=== PATIENT | female | born 1985 | race African-American/Black ===

== ENCOUNTER 2017-08-22 11:46 | Inpatient (IN) | payer OTHER ==
[2017-08-22 12:41] VITALS: BMI 22.6
--- NOTE | 2017-08-22 15:11 | HP ---
COWS - Scale Resting Pulse: 1= [place] 81-100 Sweatin= Chills/Flushing Restless Observation: 1= Difficult to Sit Still Pupil Size: 1= Pupils >than Normal Bone or Joint Aches: 2= Severe Diffuse Aches Runny Nose/ Eye Tearin= Runny Nose/Eyes GI Upset > 30mins: 2= Nausea/Diarrhea Tremor Observation: 1= Tremor [place], Not Seen Yawning Observation: 2= >3x During Session Anxiety or Irritability: 2=Irritable/Anxious Goose Flesh Skin: 0=Smooth Skin COWS Score: 15 Admission ROS S - HPI Chief Complaint: withdrawal sx from opioid Allergies/Adverse Reactions: Allergies Allergy/AdvReac Type Severity Reaction Status Date / Time No Known Allergies Allergy Verified 08/22/17 15:12 History of Present Illness: 31 years old female with long history of opioid nicotine dependence has depression is admitted to detox Exam Limitations: No Limitations - Ebola screening Have you traveled outside of the country in the last 21 days: No Have you had contact with anyone from an Ebola affected area: No Have you been sick,other than usual withdrawal symptoms: No Do you have a fever: No - Review of Systems Constitutional: Loss of Appetite, Changes in sleep, Unintentional Wgt. Loss, Unexplained wgt Loss EENT: reports: Blurred Vision (eye glasses at home), Throat Swelling Cardiac: reports: No Symptoms Reported GI: reports: Nausea, Poor Appetite, Poor Fluid Intake, Abdominal cramping : reports: No Symptoms Reported Musculoskeletal: reports: Back Pain, Joint Pain, Muscle Pain, Neck Pain Integumentary: reports: No Symptoms Reported Neuro: reports: Tremors Endocrine: reports: No Symptoms Reported Hematology: reports: No Symptoms Reported Psychiatric: reports: Judgement Intact, Orientated x3 Other Systems: Reviewed and Negative Patient History - Patient Medical History Hx Anemia: No Hx Asthma: No Hx Chronic Obstructive Pulmonary Disease (COPD): No Hx Cancer: No Hx Cardiac Disorders: No Hx Congestive Heart Failure: No Hx Hypertension: No Hx Hypercholesterolemia: No Hx Pacemaker: No HX Cerebrovascular Accident: No Hx Seizures: No Hx Dementia: No Hx Diabetes: No Hx Gastrointestinal Disorders: No Hx Liver Disease: No Hx Genitourinary Disorders: No Hx Sexually Transmitted Disorders: No Hx Renal Disease (ESRD): No Hx Thyroid Disease: No Hx Human Immunodeficiency Virus (HIV): No Hx Hepatitis C: No Hx Depression: Yes Hx Suicide Attempt: No Hx Bipolar Disorder: No Hx Schizophrenia: No - Patient Surgical History Past Surgical History: No - PPD History Previous Implant?: Yes Documented Results: Negative w/o proof Implanted On Prior [facility] Admission?: No PPD to be Administered?: Yes - Reproductive History Patient is a Female of Child Bearing Age (11 -55 yrs old): Yes Last Menstrual Period: 08/11/17 Patient : No - Smoking Cessation Smoking history: Current every day smoker Have you smoked in the past 12 months: Yes Aproximately how many cigarettes per day: 40 Cigars Per Day: 0 Hx Chewing Tobacco Use: No Initiated information on smoking cessation: Yes 'Breaking Loose' booklet given: 08/22/17 - Substance & Tx. History Hx Alcohol Use: No Hx Substance Use: Yes Substance Use Type: Opiates, Tranquilizers Hx Substance Use Treatment: No (first detox) Family Disease History - Family Disease History Family History: Denies ("they all healthy") Admission Physical Exam S - Vital Signs Vital Signs: Vital Signs - 24 hr 08/22/17 12:35 Temperature 96.4 F L Pulse Rate 84 Respiratory 17 Rate Blood Pressure 146/87 - Physical General Appearance: Yes: Appropriately Dressed, Mild Distress, Thin, Tremorous, Irritable, Sweating, Anxious HEENTM: Yes: Hearing grossly Normal, Normocephalic, Normal Voice Respiratory: Yes: Chest Non-Tender, No Respiratory Distress, No Accessory Muscle Use, Wheezing, Expiration Neck: Yes: Supple, Trachea in good position Breast: Yes: Breasts Symetrical, No Discharge Cardiology: Yes: Regular Rhythm, Regular Rate, S1, S2 Abdominal: Yes: Normal Bowel Sounds, Non Tender, Flat Genitourinary: Yes: Within Normal Limits Back: Yes: Normal Inspection Musculoskeletal: Yes: full range of Motion, Gait Steady, Back pain, Muscle Pain Extremities: Yes: Normal Inspection, Normal Range of Motion, Non-Tender, Tremors Neurological: Yes: Fully Oriented, Alert, Motor Strength 5/5, Normal Response, Depressed Affect Integumentary: Yes: Warm Lymphatic: Yes: Within Normal Limits - Diagnostic (1) Opioid dependence with withdrawal Current Visit: Yes Status: Acute (2) Nicotine dependence Current Visit: Yes Status: Acute Qualifiers: Nicotine product type: cigarettes Substance use status: in withdrawal Qualified Code(s): F17.213 - Nicotine dependence, cigarettes, with withdrawal (3) Weight loss Current Visit: Yes Status: Acute (4) Asthma Current Visit: Yes Status: Chronic Qualifiers: Asthma severity: mild Asthma persistence: persistent Asthma complication type: with status asthmaticus Qualified Code(s): J45.32 - Mild persistent asthma with status asthmaticus (5) Anxiety Current Visit: Yes Status: Suspected Cleared for Admission S - Detox or Rehab [facility] Level of Care: Medically Managed Detox Regimen/Protocol: Methadone S Breath Alcohol Content Breath Alcohol Content: 0 Urine Pregancy Test - Result Urine Test Results: Negative- NO Line Present Urine Drug Screen - Control Is Test Valid: Yes - Results Drug Screen Negative: No Urine Drug Screen Results: OPI-Opiates, BZO-Benzodiazepines
[2017-08-22] MEDS ORDERED: MAGNESIUM CITRATE 300 ML BOTTLE PO PRN (15:15)
[2017-08-22] MEDS ORDERED: P-EPHED 60MG/TRIPROLIDI 2.5MG TABLET PO PRN (15:15)
[2017-08-22] MEDS ORDERED: MAG HYDROX/AL HYDROX/SIMETH 30 ML UNIT-DOSE CUP PO PRN (15:15)
[2017-08-22] MEDS ORDERED: LOPERAMIDE HCL 2 MG CAPSULE PO PRN (15:15)
[2017-08-22] MEDS ORDERED: MAGNESIUM HYDROX 2400MG/30ML ORAL SUSPENSION 30 ML CUP PO PRN (15:15)
[2017-08-22] MEDS ORDERED: MENTHOL/PHENOL 1 EACH UD MM PRN (15:15)
[2017-08-22] MEDS ORDERED: guaiFENesin/D-METHORPHAN HB 10 ML UNIT-DOSE CUPS PO PRN (15:15)
[2017-08-22] MEDS ORDERED: NICOTINE POLACRILEX 2 MG GUM BC PRN (15:15)
[2017-08-22] MEDS ORDERED: ALBUTEROL SO4 18 GM HFA INHALER IH PRN (15:32)
[2017-08-22] MEDS ORDERED: METHADONE HCL 10 MG TABLET (FOR DETOX USE ONLY) PO ONE ×2 (15:55→23:00)
[2017-08-22] MEDS: diazePAM 5 MG TABLET PO PRN ×2 (17:14→22:13)
[2017-08-22] MEDS: NICOTINE 14 MG/24 HOURS TOPICAL PATCH TD SCH (17:15)
[2017-08-22] MEDS: THIAMINE HCL 100 MG TABLET (FP) PO SCH (22:13)
[2017-08-23 06:20] LABS: URINE APPEARANCE CLOUDY; URINE BILIRUBIN NEGATIVE (<2.0 mg/dL); URINE BLOOD NEGATIVE (NEGATIVE); URINE COLOR AMBER; URINE GLUCOSE (UA) NEGATIVE (NEGATIVE); URINE KETONE NEGATIVE (NEGATIVE); URINE NITRITE POSITIVE (NEGATIVE); URINE UROBILINOGEN 4.0 E.U/dl mg/dL (0.2-1.0)
[2017-08-23 06:34] LABS: URINE LEUK ESTERASE 1+ (NEGATIVE); URINE PROTEIN 1+ (NEGATIVE)
[2017-08-23 07:04] LABS: EPI CELLS MANY /HPF (FEW); URINE BACTERIA MODERATE /hpf (NONE SEEN); URINE MUCUS MANY
--- NOTE | 2017-08-23 07:23 | CONSULT ---
[facility] Psychiatric Consult - Data Date of interview: 08/23/17 Admission source: [facility] Identifying data: This is 31 years old female, single mopther pf three, homeless , unemployes, on PA, with long history of opioid,nicotine dependence, seeking for detox reportsng withdrawal symptoms. Substance Abuse History: Urine Drug Screen Results: OPI-Opiates, BZO- Benzodiazepines. Smoking history: Current every day smoker. Have you smoked in the past 12 months: Yes. Aproximately how many cigarettes per day: 40. Cigars Per Day: 0. Hx Chewing Tobacco Use: No. Initiated information on smoking cessation: Yes. 'Breaking Loose' booklet given: 08/22/17. - Substance & Tx. History. Hx Alcohol Use: No. Hx Substance Use: Yes. Substance Use Type : Opiates, Tranquilizers. Hx Substance Use Treatment: No (first detox) Medical History: Weight loss history, Asthma Psychiatric History: Patient reprots anxiety history, reports no medications taking prior to admission Physical/Sexual Abuse/Trauma History: Denies Additional Comment: Urine Drug Screen Results: OPI-Opiates, BZO- Benzodiazepines. Observation. Detox Unit Care Protocol Mental Status Exam - Mental Status Exam Alert and Oriented to: Person Cognitive Function: Fair Patient Appearance: Unkempt Mood: Sad Affect: Flat Patient Behavior: Sedated Speech Pattern: Delayed Voice Loudness: Mildly Soft/Quiet Thought Process: Circumstantial Thought Disorder: Being Controlled Hallucinations: Denies Suicidal Ideation: Denies Homicidal Ideation: Denies Insight/Judgement: Fair Sleep: Difficulty falling asleep Appetite: Weight loss Muscle strength/Tone: Mild Hypotonicity Gait/Station: Shuffling Additional Comments: Observation. Detox Unit Care Protocol Psychiatric Findings - Problem List ([place] 1, 2,3) (1) Drug-induced mood disorder Current Visit: Yes Status: Acute (2) Nicotine dependence Current Visit: Yes Status: Acute Qualifiers: Nicotine product type: cigarettes Substance use status: in withdrawal Qualified Code(s): F17.213 - Nicotine dependence, cigarettes, with withdrawal (3) Opioid dependence with withdrawal Current Visit: Yes Status: Acute (4) Anxiety Current Visit: Yes Status: Suspected - Initial Treatment Plan Initial Treatment Plan: Observation. Detox Unit Care Protocol
[2017-08-23 09:56] LABS: HEMATOCRIT 31.2 % (32.4-45.2); HEMOGLOBIN 9.4 GM/dL (10.7-15.3); MEAN CELL VOLUME 62.8 fl (80-96); RBC 4.97 M/mm3 (3.60-5.2); WHITE BLOOD COUNT 4.2 K/mm3 (4.0-10.0)
[2017-08-23 09:57] LABS: MCHC 30.3 g/dl (32.0-36.0); MEAN PLT VOLUME 9.1 fl (7.5-11.1); PLATELET COUNT 336 K/MM3 (134-434); RDW 24.9 % (11.6-15.6)
[2017-08-23] MEDS ORDERED: METHADONE HCL 10 MG TABLET (FOR DETOX USE ONLY) PO ONE (10:00)
[2017-08-23 10:34] LABS: CHLORIDE 101 mmol/L (98-107); POTASSIUM 4.1 mmol/L (3.5-5.1); SODIUM 134 mmol/L (136-145)
[2017-08-23] MEDS: diazePAM 5 MG TABLET PO PRN ×2 (10:35→22:29)
[2017-08-23] MEDS: NICOTINE 14 MG/24 HOURS TOPICAL PATCH TD SCH (10:35)
[2017-08-23] MEDS: PRENATAL VITAMINS W/ FOLIC ACID TABLET (FP) PO SCH (10:35)
[2017-08-23] MEDS: IBUPROFEN 400 MG TABLET (FP) PO PRN (10:36)
[2017-08-23 10:57] LABS: ALBUMIN 3.8 g/dl (3.4-5.0); ALK PHOS 75 U/L (45-117); ANION GAP 7 (8-16); BILIRUBIN,TOTAL 0.5 mg/dL (0.2-1.0); BLOOD UREA NITROGEN 5 mg/dL (7-18); CALCIUM 9.1 mg/dL (8.5-10.1); CO2 26 mmol/L (21-32); CREATININE 0.7 mg/dL (0.55-1.02); GLUCOSE,RANDOM 107 mg/dL (74-106); SGOT/AST 18 U/L (15-37); SGPT/ALT 13 U/L (12-78)
--- NOTE | 2017-08-23 11:24 | PN ---
[facility] COWS - Scale Resting Pulse: 1= [place] 81-100 Sweatin= Chills/Flushing Restless Observation: 3= Extraneous Movement Pupil Size: 1= Pupils >than Normal Bone or Joint Aches: 2= Severe Diffuse Aches Runny Nose/ Eye Tearin= Runny Nose/Eyes GI Upset > 30mins: 3= Vomiting/Diarrhea Tremor Observation of Outstretched Hands: 2= Slight Tremor Visible Yawning Observation: 1= 1-2x During Session Anxiety or Irritability: 2=Irritable/Anxious Goose Flesh Skin: 0=Smooth Skin COWS Score: 18 S Progress Note (SOAP) Subjective: ALERT,IRRITABLE,ANXIOUS,INTERRUPTED SLEEP,TREMOR,PAIN IN THE BODY AND BACK Objective: 08/23/17 11:20 Vital Signs Temperature 97.9 F 08/23/17 10:16 Pulse Rate 97 H 08/23/17 10:16 Respiratory Rate 20 08/23/17 10:16 Blood Pressure 124/84 08/23/17 10:16 O2 Sat by Pulse Oximetry (%) EKG NSR,NORMAL ECG PROLONG QT 416/439 NO CHEST PAIN,NO SOB,NO DIZZINESS Laboratory Last Values WBC 4.2 K/mm3 (4.0-10.0) 08/23/17 06:00 RBC 4.97 M/mm3 (3.60-5.2) 08/23/17 06:00 Hgb 9.4 GM/dL (10.7-15.3) L 08/23/17 06:00 Hct 31.2 % (32.4-45.2) L 08/23/17 06:00 MCV 62.8 fl (80-96) L 08/23/17 06:00 MCH 19.0 pg (25.7-33.7) L 08/23/17 06:00 MCHC 30.3 g/dl (32.0-36.0) L 08/23/17 06:00 RDW 24.9 % (11.6-15.6) H 08/23/17 06:00 Plt Count 336 K/MM3 (134-434) 08/23/17 06:00 MPV 9.1 fl (7.5-11.1) 08/23/17 06:00 Sodium 134 mmol/L (136-145) L 08/23/17 06:00 Potassium 4.1 mmol/L (3.5-5.1) 08/23/17 06:00 Chloride 101 mmol/L (98-107) 08/23/17 06:00 Carbon Dioxide 26 mmol/L (21-32) 08/23/17 06:00 Anion Gap 7 (8-16) L 08/23/17 06:00 BUN 5 mg/dL (7-18) L 08/23/17 06:00 Creatinine 0.7 mg/dL (0.55-1.02) 08/23/17 06:00 Creat Clearance w eGFR > 60 (>60) 08/23/17 06:00 Random Glucose 107 mg/dL (74-106) H 08/23/17 06:00 Calcium 9.1 mg/dL (8.5-10.1) 08/23/17 06:00 Total Bilirubin 0.5 mg/dL (0.2-1.0) 08/23/17 06:00 AST 18 U/L (15-37) 08/23/17 06:00 ALT 13 U/L (12-78) 08/23/17 06:00 Alkaline Phosphatase 75 U/L (45-117) 08/23/17 06:00 Total Protein 8.0 g/dl (6.4-8.2) 08/23/17 06:00 Albumin 3.8 g/dl (3.4-5.0) 08/23/17 06:00 Urine Color [place] 08/22/17: Urine Appearance Cloudy 08/22/17: Urine pH 6.0 (5.0-8.0) 08/22/17: Ur Specific [place] 1.021 (1.001-1.035) 08/22/17: Urine Protein 1+ (NEGATIVE) H 08/22/17: Urine Glucose (UA) Negative (NEGATIVE) 08/22/17: Urine Ketones Negative (NEGATIVE) 08/22/17: Urine Blood Negative (NEGATIVE) 08/22/17: Urine Nitrite Positive (NEGATIVE) 08/22/17: Urine Bilirubin Negative (<2.0 mg/dL) 08/22/17: Urine Urobilinogen 4.0 e.u/dl mg/dL (0.2-1.0) H 08/22/17 22:27 Ur Leukocyte Esterase 1+ (NEGATIVE) H 08/22/17 22:27 Urine WBC (Auto) 37 /hpf (3-5) 08/22/17 22:27 Urine RBC (Auto) 1 /hpf (0-3) 08/22/17 22:27 Ur Epithelial Cells Many /HPF (FEW) 08/22/17 22:27 Urine Bacteria Moderate /hpf (NONE SEEN) 08/22/17 22:27 Urine Mucus Many 08/22/17 22:27 08/23/17 11:24 LABS PENDING Assessment: 08/23/17 11:25 WITHDRAWAL SYMPTOM Plan: CONTINUE DETOX,HISTORY OF ANEMIA,NON COMPLIANCE USED TO TAKE IRON,ENCORAGE ORAL FLUID,REPEAT UA
--- NOTE | 2017-08-23 11:31 | EKG ---
Test Reason : Blood Pressure : / mmHG Vent. Rate : 067 BPM Atrial Rate : 067 BPM P-R Int : 128 ms QRS Dur : 082 ms QT Int : 416 ms P-R-T Axes : 069 078 054 degrees QTc Int : 439 ms NORMAL SINUS RHYTHM NORMAL ECG NO PREVIOUS ECGS AVAILABLE Confirmed by CARL WALTERS, RADHA ([id number]) on 08/23/2017 11:31:29 AM Referred By: Confirmed By:RADHA HENRY MD
[2017-08-23] MEDS: FERROUS SO4 325 MG TABLET (FP) PO SCH ×2 (12:55→22:28)
[2017-08-23] MEDS: cloNIDine HCL 0.1 MG TABLET PO SCH (22:28)
[2017-08-23] MEDS: CYCLOBENZAPRINE HCL 10 MG TABLET (FP) PO PRN (22:28)
[2017-08-23] MEDS: MELATONIN 5 MG TABLETS PO PRN (22:29)
[2017-08-23] MEDS: THIAMINE HCL 100 MG TABLET (FP) PO SCH (22:29)
[2017-08-24] MEDS ORDERED: METHADONE HCL 5 MG TABLET (FOR DETOX USE ONLY) PO ONE (10:00)
[2017-08-24] MEDS: diazePAM 5 MG TABLET PO PRN ×2 (10:55→17:30)
[2017-08-24] MEDS: PRENATAL VITAMINS W/ FOLIC ACID TABLET (FP) PO SCH (10:56)
[2017-08-24] MEDS: CYCLOBENZAPRINE HCL 10 MG TABLET (FP) PO PRN (10:56)
[2017-08-24] MEDS: FERROUS SO4 325 MG TABLET (FP) PO SCH ×2 (10:56→22:41)
[2017-08-24] MEDS: NICOTINE 14 MG/24 HOURS TOPICAL PATCH TD SCH (10:58)
[2017-08-24] MEDS: cloNIDine HCL 0.1 MG TABLET PO SCH ×2 (10:58→22:41)
[2017-08-24] MEDS: IBUPROFEN 400 MG TABLET (FP) PO PRN ×2 (10:59→19:08)
--- NOTE | 2017-08-24 11:54 | PN ---
[facility] COWS - Scale Resting Pulse: 0= [place] 80 or Below Sweatin= Chills/Flushing Restless Observation: 1= Difficult to Sit Still Pupil Size: 1= Pupils >than Normal Bone or Joint Aches: 2= Severe Diffuse Aches Runny Nose/ Eye Tearin= Nasal Congestion GI Upset > 30mins: 2= Nausea/Diarrhea Tremor Observation of Outstretched Hands: 2= Slight Tremor Visible Yawning Observation: 2= >3x During Session Anxiety or Irritability: 2=Irritable/Anxious Goose Flesh Skin: 0=Smooth Skin COWS Score: 14 BHS Progress Note (SOAP) Subjective: sweat tremor anxiety restlessness trouble sleep at night request addition methadone and percocet thtat those were prescribed by her doctor Objective: 08/24/17 11:51 Vital Signs Temperature 97.9 F 08/24/17 10:18 Pulse Rate 97 H 08/24/17 10:18 Respiratory Rate 16 08/24/17 10:18 Blood Pressure 99/66 08/24/17 10:18 O2 Sat by Pulse Oximetry (%) Laboratory Last Values WBC 4.2 K/mm3 (4.0-10.0) 08/23/17 06:00 RBC 4.97 M/mm3 (3.60-5.2) 08/23/17 06:00 Hgb 9.4 GM/dL (10.7-15.3) L 08/23/17 06:00 Hct 31.2 % (32.4-45.2) L 08/23/17 06:00 MCV 62.8 fl (80-96) L 08/23/17 06:00 MCH 19.0 pg (25.7-33.7) L 08/23/17 06:00 MCHC 30.3 g/dl (32.0-36.0) L 08/23/17 06:00 RDW 24.9 % (11.6-15.6) H 08/23/17 06:00 Plt Count 336 K/MM3 (134-434) 08/23/17 06:00 MPV 9.1 fl (7.5-11.1) 08/23/17 06:00 Sodium 134 mmol/L (136-145) L 08/23/17 06:00 Potassium 4.1 mmol/L (3.5-5.1) 08/23/17 06:00 Chloride 101 mmol/L (98-107) 08/23/17 06:00 Carbon Dioxide 26 mmol/L (21-32) 08/23/17 06:00 Anion Gap 7 (8-16) L 08/23/17 06:00 BUN 5 mg/dL (7-18) L 08/23/17 06:00 Creatinine 0.7 mg/dL (0.55-1.02) 08/23/17 06:00 Creat Clearance w eGFR > 60 (>60) 08/23/17 06:00 Random Glucose 107 mg/dL (74-106) H 08/23/17 06:00 Calcium 9.1 mg/dL (8.5-10.1) 08/23/17 06:00 Total Bilirubin 0.5 mg/dL (0.2-1.0) 08/23/17 06:00 AST 18 U/L (15-37) 08/23/17 06:00 ALT 13 U/L (12-78) 08/23/17 06:00 Alkaline Phosphatase 75 U/L (45-117) 08/23/17 06:00 Total Protein 8.0 g/dl (6.4-8.2) 08/23/17 06:00 Albumin 3.8 g/dl (3.4-5.0) 08/23/17 06:00 Urine Color [place] 08/22/17: Urine Appearance Cloudy 08/22/17: Urine pH 6.0 (5.0-8.0) 08/22/17: Ur Specific [place] 1.021 (1.001-1.035) 08/22/17: Urine Protein 1+ (NEGATIVE) H 08/22/17: Urine Glucose (UA) Negative (NEGATIVE) 08/22/17: Urine Ketones Negative (NEGATIVE) 08/22/17: Urine Blood Negative (NEGATIVE) 08/22/17: Urine Nitrite Positive (NEGATIVE) 08/22/17: Urine Bilirubin Negative (<2.0 mg/dL) 08/22/17 22: Urine Urobilinogen 4.0 e.u/dl mg/dL (0.2-1.0) H 08/22/17:27 Ur Leukocyte Esterase 1+ (NEGATIVE) H 08/22/17 22:27 Urine WBC (Auto) 37 /hpf (3-5) 08/22/17 22:27 Urine RBC (Auto) 1 /hpf (0-3) 08/22/17 22:27 Ur Epithelial Cells Many /HPF (FEW) 08/22/17 22:27 Urine Bacteria Moderate /hpf (NONE SEEN) 08/22/17 22:27 Urine Mucus Many 08/22/17 22:27 RPR Titer Nonreactive (NONREACTIVE) 08/23/17 06:00 HIV 1&2 Antibody Screen Negative 08/23/17 06:00 HIV P24 Antigen Negative 08/23/17 06:00 lab noted 08/24/17 11:53 uti Assessment: 08/24/17 11:53 withdrawal sx uti Plan: continue detox increase oral fluid begin nitrofurantoin
[2017-08-24] MEDS: NITROFURANTOIN MACROCRYSTAL 50 MG CAPSULE (FP) PO SCH ×2 (12:31→17:28)
[2017-08-24] MEDS: THIAMINE HCL 100 MG TABLET (FP) PO SCH (22:41)
[2017-08-24] MEDS: ACETAMINOPHEN 325 MG TABLET (FP) PO PRN (22:42)
[2017-08-24] MEDS: MELATONIN 5 MG TABLETS PO PRN (22:44)
[2017-08-25] MEDS: NITROFURANTOIN MACROCRYSTAL 50 MG CAPSULE (FP) PO SCH ×5 (06:02→23:31)
[2017-08-25] MEDS ORDERED: METHADONE HCL 5 MG TABLET (FOR DETOX USE ONLY) PO ONE (10:00)
[2017-08-25] MEDS: FERROUS SO4 325 MG TABLET (FP) PO SCH ×3 (10:12→17:18)
[2017-08-25] MEDS: diazePAM 5 MG TABLET PO PRN ×2 (10:12→14:24)
[2017-08-25] MEDS: PRENATAL VITAMINS W/ FOLIC ACID TABLET (FP) PO SCH (10:12)
[2017-08-25] MEDS: cloNIDine HCL 0.1 MG TABLET PO SCH ×2 (10:12→22:19)
[2017-08-25] MEDS: NICOTINE 14 MG/24 HOURS TOPICAL PATCH TD SCH (10:13)
--- NOTE | 2017-08-25 10:14 | PN ---
[facility] Progress Note (SOAP) Subjective: [place], sweats, interrupted sleep, anxiety, tremors Objective: 08/25/17 10:13 Vital Signs - 8 hr 08/25/17 08/25/17 03:30 06:00 Temperature 97.9 F Pulse Rate 74 Respiratory 18 18 Rate Blood Pressure 102/63 Laboratory Tests 08/22/17 08/23/17 08/23/17 22:27 06:00 06:00 WBC 4.2 RBC 4.97 Hgb 9.4 L Hct 31.2 L MCV 62.8 L MCH 19.0 L MCHC 30.3 L RDW 24.9 H Plt Count 336 MPV 9.1 Sodium 134 L Potassium 4.1 Chloride 101 Carbon Dioxide 26 Anion Gap 7 L BUN 5 L Creatinine 0.7 Creat Clearance w eGFR > 60 Random Glucose 107 H Calcium 9.1 Total Bilirubin 0.5 AST 18 ALT 13 Alkaline Phosphatase 75 Total Protein 8.0 Albumin 3.8 Urine Color [place] Urine Appearance Cloudy Urine pH 6.0 Ur Specific [place] 1.021 Urine Protein 1+ H Urine Glucose (UA) Negative Urine Ketones Negative Urine Blood Negative Urine Nitrite Positive Urine Bilirubin Negative Urine Urobilinogen 4.0 e.u/dl H Ur Leukocyte Esterase 1+ H Urine WBC (Auto) 37 Urine RBC (Auto) 1 Ur Epithelial Cells Many Urine Bacteria Moderate Urine Mucus Many RPR Titer HIV 1&2 Antibody Screen HIV P24 Antigen 08/23/17 08/23/17 06:00 06:00 WBC RBC Hgb Hct MCV MCH MCHC RDW Plt Count MPV Sodium Potassium Chloride Carbon Dioxide Anion Gap BUN Creatinine Creat Clearance w eGFR Random Glucose Calcium Total Bilirubin AST ALT Alkaline Phosphatase Total Protein Albumin Urine Color Urine Appearance Urine pH Ur Specific [place] Urine Protein Urine Glucose (UA) Urine Ketones Urine Blood Urine Nitrite Urine Bilirubin Urine Urobilinogen Ur Leukocyte Esterase Urine WBC (Auto) Urine RBC (Auto) Ur Epithelial Cells Urine Bacteria Urine Mucus RPR Titer Nonreactive HIV 1&2 Antibody Screen Negative HIV P24 Antigen Negative microcytic anemia Assessment: 08/25/17 10:14 withdrawal sx - cont detox, micorcytic anemia, iron supplements ordered , fluids , encoruage ambulation
[2017-08-25] MEDS: IBUPROFEN 400 MG TABLET (FP) PO PRN ×2 (12:14→22:19)
[2017-08-25 12:48] LABS: URINE APPEARANCE CLOUDY; URINE BILIRUBIN NEGATIVE (<2.0 mg/dL); URINE BLOOD NEGATIVE (NEGATIVE); URINE GLUCOSE (UA) NEGATIVE (NEGATIVE); URINE KETONE NEGATIVE (NEGATIVE); URINE LEUK ESTERASE TRACE (NEGATIVE); URINE NITRITE NEGATIVE (NEGATIVE); URINE PROTEIN NEGATIVE (NEGATIVE); URINE UROBILINOGEN NEGATIVE mg/dL (0.2-1.0)
[2017-08-25 12:50] LABS: URINE COLOR DK YELLOW
[2017-08-25 12:53] LABS: EPI CELLS MANY /HPF (FEW); URINE BACTERIA RARE /hpf (NONE SEEN); URINE MUCUS FEW
[2017-08-25] MEDS ORDERED: DOCUSATE SODIUM 100 MG CAPSULE (FP) PO SCH (22:00)
[2017-08-25] MEDS: THIAMINE HCL 100 MG TABLET (FP) PO SCH (22:19)
[2017-08-25] MEDS: CYCLOBENZAPRINE HCL 10 MG TABLET (FP) PO PRN (22:20)
[2017-08-25] MEDS ORDERED: hydrOXYzine PAMOATE 50 MG CAPSULE (FP) PO PRN (22:55)
[2017-08-26] MEDS: NITROFURANTOIN MACROCRYSTAL 50 MG CAPSULE (FP) PO SCH ×4 (05:57→11:30)
[2017-08-26] MEDS: ACETAMINOPHEN 325 MG TABLET (FP) PO PRN (05:58)
[2017-08-26] MEDS: FERROUS SO4 325 MG TABLET (FP) PO SCH ×2 (07:33→11:30)
[2017-08-26] MEDS ORDERED: METHADONE HCL 10 MG TABLET (FOR DETOX USE ONLY) PO ONE (10:00)
[2017-08-26] MEDS: PRENATAL VITAMINS W/ FOLIC ACID TABLET (FP) PO SCH (10:33)
[2017-08-26] MEDS: cloNIDine HCL 0.1 MG TABLET PO SCH (10:33)
[2017-08-26] MEDS: IBUPROFEN 400 MG TABLET (FP) PO PRN (11:34)
[2017-08-26] MEDS: NICOTINE 14 MG/24 HOURS TOPICAL PATCH TD SCH (11:36)
--- NOTE | 2017-08-26 14:29 | PN ---
S Progress Note (SOAP) Subjective: ALERT,IRRITABLE,INTERRUPTED SLEEP Objective: 08/26/17 14:28 Vital Signs Temperature 97.9 F 08/26/17 10:00 Pulse Rate 80 08/26/17 10:00 Respiratory Rate 18 08/26/17 10:00 Blood Pressure 110/81 08/26/17 10:00 O2 Sat by Pulse Oximetry (%) Assessment: 08/26/17 14:28 WITHDRAWAL SYMPTOM Plan: CONTINUE DETOX,DISCHARGE IN AM
[2017-08-26] MEDS: CYCLOBENZAPRINE HCL 10 MG TABLET (FP) PO PRN (14:38)
[2017-08-26 14:52] VITALS: BP 110/74; PULSE 90; TEMP 97
--- NOTE | 2017-08-26 16:07 | PN ---
S Progress Note Note: called by nurse stated patient did not want to complete treatment,seen by counselor,did not want to wait,signed release ama
--- NOTE | 2017-08-26 16:08 | DS ---
[facility] Detox Discharge Summary Admission Date: 08/22/17 Discharge Date: 08/26/17 - History Present History: Opioid Dependence Additional Comments: patient did not want to complete treatment,seen by counselor,did not want to wait,signed release ama Pertinent Past History: asthma nicotine dependence - Physical Exam Results Vital Signs: Vital Signs Temperature 97.0 F L 08/26/17 14:52 Pulse Rate 90 08/26/17 14:52 Respiratory Rate 18 08/26/17 14:52 Blood Pressure 110/74 08/26/17 14:52 O2 Sat by Pulse Oximetry (%) Pertinent Admission Physical Exam Findings: withdrawal signs and sym Vital Signs Temperature 97.0 F L 08/26/17 14:52 Pulse Rate 90 08/26/17 14:52 Respiratory Rate 18 08/26/17 14:52 Blood Pressure 110/74 08/26/17 14:52 O2 Sat by Pulse Oximetry (%) Laboratory Last Values WBC 4.2 K/mm3 (4.0-10.0) 08/23/17 06:00 RBC 4.97 M/mm3 (3.60-5.2) 08/23/17 06:00 Hgb 9.4 GM/dL (10.7-15.3) L 08/23/17 06:00 Hct 31.2 % (32.4-45.2) L 08/23/17 06:00 MCV 62.8 fl (80-96) L 08/23/17 06:00 MCH 19.0 pg (25.7-33.7) L 08/23/17 06:00 MCHC 30.3 g/dl (32.0-36.0) L 08/23/17 06:00 RDW 24.9 % (11.6-15.6) H 08/23/17 06:00 Plt Count 336 K/MM3 (134-434) 08/23/17 06:00 MPV 9.1 fl (7.5-11.1) 08/23/17 06:00 Sodium 134 mmol/L (136-145) L 08/23/17 06:00 Potassium 4.1 mmol/L (3.5-5.1) 08/23/17 06:00 Chloride 101 mmol/L (98-107) 08/23/17 06:00 Carbon Dioxide 26 mmol/L (21-32) 08/23/17 06:00 Anion Gap 7 (8-16) L 08/23/17 06:00 BUN 5 mg/dL (7-18) L 08/23/17 06:00 Creatinine 0.7 mg/dL (0.55-1.02) 08/23/17 06:00 Creat Clearance w eGFR > 60 (>60) 08/23/17 06:00 Random Glucose 107 mg/dL (74-106) H 08/23/17 06:00 Calcium 9.1 mg/dL (8.5-10.1) 08/23/17 06:00 Total Bilirubin 0.5 mg/dL (0.2-1.0) 08/23/17 06:00 AST 18 U/L (15-37) 08/23/17 06:00 ALT 13 U/L (12-78) 08/23/17 06:00 Alkaline Phosphatase 75 U/L (45-117) 08/23/17 06:00 Total Protein 8.0 g/dl (6.4-8.2) 08/23/17 06:00 Albumin 3.8 g/dl (3.4-5.0) 08/23/17 06:00 Urine Color [place] yellow 08/25/17 11:00 Urine Appearance Cloudy 08/25/17 11:00 Urine pH 5.0 (5.0-8.0) 08/25/17 11:00 Ur Specific [place] 1.029 (1.001-1.035) 08/25/17 11:00 Urine Protein Negative (NEGATIVE) 08/25/17 11:00 Urine Glucose (UA) Negative (NEGATIVE) 08/25/17 11:00 Urine Ketones Negative (NEGATIVE) 08/25/17 11:00 Urine Blood Negative (NEGATIVE) 08/25/17 11:00 Urine Nitrite Negative (NEGATIVE) 08/25/17 11:00 Urine Bilirubin Negative (<2.0 mg/dL) 08/25/17 11:00 Urine Urobilinogen Negative mg/dL (0.2-1.0) 08/25/17 11:00 Ur Leukocyte Esterase Trace (NEGATIVE) 08/25/17 11:00 Urine WBC (Auto) 10 /hpf (3-5) 08/25/17 11:00 Urine RBC (Auto) 6 /hpf (0-3) 08/25/17 11:00 Ur Epithelial Cells Many /HPF (FEW) 08/25/17 11:00 Urine Bacteria Rare /hpf (NONE SEEN) 08/25/17 11:00 Urine Mucus Few 08/25/17 11:00 RPR Titer Nonreactive (NONREACTIVE) 08/23/17 06:00 HIV 1&2 Antibody Screen Negative 08/23/17 06:00 HIV P24 Antigen Negative 08/23/17 06:00 - Medication Discharge Medications: Ambulatory Orders NK [No Known Home Medication] 08/22/17 - Diagnosis (1) Opioid dependence with withdrawal Status: Acute (2) Drug-induced mood disorder Status: Acute (3) Nicotine dependence Status: Acute Qualifiers: Nicotine product type: cigarettes Substance use status: in withdrawal Qualified Code(s): F17.213 - Nicotine dependence, cigarettes, with withdrawal (4) Weight loss Status: Acute (5) Asthma Status: Chronic Qualifiers: Asthma severity: mild Asthma persistence: persistent Asthma complication type: with status asthmaticus Qualified Code(s): J45.32 - Mild persistent asthma with status asthmaticus (6) Anxiety Status: Suspected (7) Anemia Status: Acute - AMA Did Patient Leave Against Medical Advice: Yes
--- NOTE | 2017-08-26 16:15 | PN ---
BHS Progress Note Note: patient left ama
[2017-08-27] MEDS ORDERED: METHADONE HCL 5 MG TABLET (FOR DETOX USE ONLY) PO ONE (06:00)
== END 2017-08-26 15:41 | disposition left against medical advice (07) | DRG 770 ==
LOC: YASAS 11:46 → Y6N 15:47
PROVIDERS: ADMIT Internal Medicine; ATTEND Internal Medicine
PROC: HZ2ZZZZ Detoxification Services for Substance Abuse Treatment (ICD-10-PCS; principal; 2017-08-22)
DX: F11.23 Opioid dependence with withdrawal (principal); F17.213 Nicotine dependence, cigarettes, with withdrawal; F19.24 Other psychoactive substance dependence with psychoactive substance-induced mood disorder; F41.9 Anxiety disorder, unspecified; J45.32 Mild persistent asthma with status asthmaticus; D50.9 Iron deficiency anemia, unspecified; N39.0 Urinary tract infection, site not specified; Z87.898 Personal history of other specified conditions
CPT/HCPCS: 36415; 80053; 81003; 81015; 85027; 86593; 87389; 93005; 93010; J0735